=== PATIENT | male | born 1965 | race Caucasian/White ===

== ENCOUNTER 2019-04-10 03:24 | Emergency (ER) | payer MEDICARE, MEDICAID ==
[~2019-04-10] VITALS: Ht 175.3 cm; Wt 59.0 kg
[2019-04-10 03:30] VITALS: BP 166/97
--- NOTE | 2019-04-10 03:30 | NUR ---
PT PT [id number] FROM [facility] C/O HEADACHE X1 DAY. +SOB, -DIZZINESS, -CP, -N/V/D. PT AOX4. NAD NOTED. RESP EVEN AND UNLABORED. WILL CONTINUE TO MONITOR.
[2019-04-10] MEDS ORDERED: IPRATROPIUM NEB FS 0.5 MG/2.5 ML AMPUL.NEB ONE ×2 (03:40→04:05)
[2019-04-10] MEDS ORDERED: ALBUTEROL FS 2.5 MG/3 ML VIAL.NEB ONE (03:40)
[2019-04-10] MEDS ORDERED: ONDANSETRON 4 MG TAB.RAPDIS ONE (03:49)
[2019-04-10] MEDS ORDERED: HYDROCODONE/APAP 10/325MG 1 EA TABLET ONE (03:49)
--- NOTE | 2019-04-10 03:59 | NUR ---
back from CT scan
[2019-04-10] MEDS ORDERED: IPRATROPIUM NEB FS 0.5 MG/2.5 ML AMPUL.NEB NEB ONE (04:00)
[2019-04-10] MEDS ORDERED: ONDANSETRON 4 MG TAB.RAPDIS SL ONE (04:00)
[2019-04-10] MEDS ORDERED: HYDROCODONE/APAP 10/325MG 1 EA TABLET PO ONE (04:00)
[2019-04-10] MEDS ORDERED: ALBUTEROL FS 2.5 MG/3 ML VIAL.NEB NEB ONE (04:00)
--- NOTE | 2019-04-10 06:03 | NUR ---
PT REFUSING TAP CARD AND HOMELESS PACKET
--- NOTE | 2019-04-10 06:03 | NUR ---
Patient discharged to home in stable condition. Written and verbal after care instructions given. Patient verbalizes understanding of instruction.
== END 2019-04-10 06:16 | disposition home or self-care (01) ==
LOC: ER 03:25
DX: H66.91 Otitis media, unspecified, right ear (principal); R51 Headache; G89.29 Other chronic pain; M54.9 Dorsalgia, unspecified; F17.200 Nicotine dependence, unspecified, uncomplicated; Z59.0 Homelessness
CPT/HCPCS: 70450; 94640; 99284; Q0162